=== PATIENT | male | born 1970 | race Caucasian/White ===

== ENCOUNTER → 2019-07-12 16:29 | Outpatient (CLI) | payer OTHER, SELFPAY ==
--- NOTE | 2019-07-12 | XR_ITS ---
PROCEDURE: XR KNEE LT 3V CLINICAL INDICATION: Chronic knee pain COMPARISON: [id number] XR knee LT 3V from 03/30/2018 FINDINGS: No fracture or dislocation. No lytic or blastic change. There is normal mineralization. There are minimal osteoarthritic changes of the medial compartment which has developed since the previous exam. Other findings:None. IMPRESSION: Minimal osteoarthritic change medial compartment Dictated by: Paul Perales MD 07/12/2019 17:38 Electronically signed by Paul Perales MD in [place] 07/12/2019 17:38
== END ==
PROVIDERS: PCP Pediatrics; Visit Provider Pediatrics
DX: M25.562 Pain in left knee (principal)
CPT/HCPCS: 73562

== ENCOUNTER 2024-02-22 15:08 | Outpatient (CLI) | payer OTHER, SELFPAY ==
--- NOTE | 2024-02-22 15:09 | CT_ITS ---
FINAL REPORT TECHNIQUE: Axial CT images of the chest were obtained without contrast. Low-dose protocol was utilized. This study was performed with techniques to keep radiation doses as low as reasonably achievable (ALARA). Individualized dose reduction techniques using automated exposure control or adjustment of mA and/or kV according to the patient's size were employed. CLINICAL HISTORY: lung cancer screening smoker 35 years, 1ppd COMPARISON: None FINDINGS: CT CHEST WITHOUT, LOW DOSE SCREENING CT Di Vol: 2.90 mGy DLP: 106.55 mGy*cm There is no axillary, mediastinal, or hilar adenopathy. The heart size is normal. There is no pleural or pericardial effusion. The lung windows show a mildly irregular nodule in the right lung apex on image 20 measuring 10 x 7 mm. There are few other scattered 2 mm nodules in the upper lobes. Emphysema is noted. Limited images of the upper abdomen demonstrate no acute findings. IMPRESSION: Numerous tiny benign-appearing nodules with a more dominant right lung apex nodule measuring up to 10 mm. LR Category 4A: Recommend PET/CT. Then, if this exam is negative, short-term 3-month chest CT follow-up recommended. Reviewed, Interpreted and Dictated by Orquidea Banda MD Transcribed by Halima Bell Authenticated and [facility]
== END 2024-02-22 23:59 | disposition home or self-care (01) ==
LOC: RAD 15:09
PROVIDERS: PCP Internal Medicine; Visit Provider Internal Medicine
DX: F17.210 Nicotine dependence, cigarettes, uncomplicated (principal)
CPT/HCPCS: 71271

== ENCOUNTER 2024-02-23 06:20 | Outpatient (CLI) | payer OTHER, SELFPAY ==
--- NOTE | 2024-02-23 06:26 | NM_ITS ---
APPROVED REPORT Exam: Nuclear Stress Test Indication: Chest pain, SOB, High cholesterol, Tobacco use Patient Location: Outpatient Stress Tech: Courtney Soria NM Tech:Ayleen Albright, ARRT, RT (R)(N) Ht: 5 ft 9 in Wt: 143 lbs HR: 68 bpm BP: 146/79 mmHg BSA: 1.79 m2 TID: 1.06 BMI: 21.1 History: Chest pain, SOB, High cholesterol, Tobacco use Procedure: Patient exercised on Juan Pablo protocol 9:31 minutes and sec, resting heart rate 68 bpm, resting blood pressure 146/79 mmHg, with exercise maximum heart rate achived was 148 bpm which is 88 % of the maximum predicted heart rate and blood pressure was 184/79 mmHg. Test was stopped due to SOB. Patient denied any complaint of chest pain. Patient has exercise capacity, achieved 10.1 METs of workload on treadmill, the blood pressure response to exercise was . Cardiac Stress and Resting SPECT Images: Cardiac Stress and Resting SPECT images were obtained using technetium 99m Myoview 30.1 mCi stress and 10.79 mCi at rest. Resting and stress imaging in supine and prone positions demonstrate a large sized, moderate, partially reversible perfusion defect in the and inferior and inferoseptal LV lopez. Findings are suggestive of partial reversible ischemia. Gated imaging demonstrates mild reduction global LV systolic function. There is moderate hypokinesis of the basal to mid inferior LV wall. LVEF is calculated at 49%. Conclusion: Large sized, moderate, partially reversible perfusion defect in the and inferior and inferoseptal LV lopez. Findings are suggestive of partial reversible ischemia. Gated imaging demonstrates mild reduction global LV systolic function. There is moderate hypokinesis of the basal to mid inferior LV wall. LVEF is calculated at 49%. Electronically signed by : Adrianna Story MD 02/23/2024 12:31:36
--- NOTE | 2024-02-23 07:41 | CA_ITS ---
APPROVED REPORT EXAM: Comprehensive 2D, Doppler, and color-flow Echocardiogram Statistical Secretary: Lena Crespo RT(R) Ht: 5 ft 10 in Wt: 144lbs BSA: 1.82 BP: 105/81 mmHg Indications: CP, smoker, hyperlipidemia, SOB, history of CVA with known PFO diagnosed at [facility]. Echo ordered as a bubble study to reassess PFO. Echo Enhancing Agent Indication: Rule out Shunt Agent(s) / Amount(s) Used: Agitated Saline 15 cc 2D Dimensions Left Atrium 2.30 cm M: 3.0 - 4.0 LVEF (Stevens's) 53.80 % M: 52 - 72 LVOT 2.11 cm (M/F) 1.5-2.5 LV Volume 73.10 mL M: 62 - 150 LV Volume Index 40.2 mL/m2 M: 34 - 74 LA Volume 30.00 mL LA Volume Index 16.48 mL/m2 (M/F) 16-34 EF AP4 54.20 % EF AP2 61.4 % EF BP 53.8 % GL Strain -12.7 % M-Mode Dimensions RVDd 2.57 cm (0.9-2.6) LVDd 4.17 cm (3.5-5.7) Ao Diam 2.58 cm (2.0-3.7) LVDs 3.21 cm (3.5-5.7) IVSd 0.89 cm (0.6-1.1) PWd 0.57 cm (0.6-1.1) EF (Teich) 46.60% FS 23.00% EDV (Teich) 77.30 mL ESV (Teich) 41.30 mL LV Diastology E Decel Time 164 (160-240 msec) E/A Ratio 1.2 MED E' 9.1 (>= 7 cm/sec) E'/MED E' Ratio 6.88 (<= 14) LAT E' 11.1 (>= 10 cm/sec) E/LAT E' Ratio 5.64 (<= 14) Mitral Valve MV E Max Toribio. 63.0 (40-130 cm/s) MV A Velocity 54.0 (40-130 cm/s) E/A Ratio 1.16 MV Decel. Time 164 (160-240 ms) Left Ventricle The left ventricle is normal size. The left ventricular systolic function is normal. The left ventricular ejection fraction is within the normal range. There is normal left ventricular wall thickness. There is normal LV segmental wall motion. The left ventricular diastolic function is normal. LVEF is 55%. Right Ventricle The right ventricle is normal size. The right ventricular systolic function is normal. Atria The left atrium size is normal. The right atrium size is normal. Color Doppler demonstrates presence of left to right interatrial shunt. Agitated saline administration confirms presence of interatrial shunt. Aortic Valve The aortic valve opens well. There is no aortic valvular stenosis. No aortic regurgitation is present. Mitral Valve The mitral valve is normal in structure. No evidence of mitral valve stenosis. There is no mitral valve regurgitation noted. Tricuspid Valve The tricuspid valve leaflets are thin and pliable. Trace tricuspid regurgitation. There is insufficient TR jet to estimate RVSP. Pulmonic Valve The pulmonary valve is normal in structure. Trace pulmonic regurgitation. Great Vessels The aortic root is normal in size. The ascending aorta is not well-visualized. IVC is normal in size and collapses >50% with inspiration. Pericardium There is no pericardial effusion. Other Information Study Quality: Fair Conclusion Normal biventricular systolic size and function. No significant valvular stenosis or regurgitation. Color Doppler demonstrates presence of left to right interatrial shunt. Agitated saline administration confirms presence of interatrial shunt. Electronically signed by : Adrianna Story MD 02/23/2024 12:27:50
--- NOTE | 2024-02-23 08:31 | CA_ITS ---
FINAL REPORT CLINICAL HISTORY: CVA, Patent foramen ovale FINDINGS: RIGHT CAROTID: CCA PSV -78 cm/sec ICA PSV -84 cm/sec ICA/CCA PSV ratio -1.1. Comments: Moderate plaque disease is noted. LEFTCAROTID: CCA PSV -113. cm/sec ICA PSV -95. cm/sec ICA/CCA PSV ratio -1.2. Comments: Moderate plaque disease is noted. Antegrade flow is seen within the vertebral arteries. IMPRESSION: Carotid stenosis classified less than 50% Reviewed, Interpreted and Dictated by Orquidea Banda MD Transcribed by Susanne Plaza Authenticated and [facility]
--- NOTE | 2024-02-23 09:40 | CA_ITS ---
APPROVED REPORT Exam: Exercise Treadmill Technologist: Courtney Soria Ht: 5 ft 0 in Wt: 144 lbs BSA: 1.62 m2 HR: 57 bpm BP: 146/79 mmHg Rhythm: NSR Indications: Chest pain, Shortness of Breath, CVA Medical History Medications: CHOLESTEROL MED,,,,, Blood THINNER,,,,, Stress Test Details Test: Juan Pablo HR Resting HR: 68 bpm Max Heart Rate (APMHR): 168 bpm Max HR Achieved: 148 bpm Target HR (85% APMHR): 143 bpm % of APMHR: 88 Recovery HR: 87 bpm HR response to stress: Normal HR response to stress BP Resting BP: 146.0/79.0 mmHg Max BP: 184.0/79.0 mmHg Recovery BP: 148.0/85.0 mmHg BP response to stress: Normal blood pressure response to stress. ECG Resting ECG: Sinus bradycardia Stress EC.[address] depression Arrhythmia: PVCs Recovery ECG: Return to baseline within 3 minutes of recovery Recovery Arrhythmia: PVCs Clinical Exercise duration: 09:31 min Highest Stage Achieved: Exercise capacity: 10.1 METs Overall Exercise Capacity for Age: Average Stress ECG Conclusion The patient was able to exercise for a total of 10 minutes, 31 seconds. He achieved a total of 10.1 METS. He has average exercise capacity compared to age and sex matched peers. Symptoms: Dyspnea Arrhythmias/Ectopy: Frequent PVCs ST-T Changes: 0.[address] depression. Conclusion: Average exercise capacity. Normal EKG response to exercise. Myoview images are reported separately. Test Summary REST . . . . . . . Sitting REST 15:36 0.0 0.0 68 . 146/ 79 . . Stage 1 01:00 10.0 1.7 87 . . . . Stage 1 02:00 10.0 1.7 96 . . . . Stage 1 03:00 10.0 1.7 97 . 150/ 82 . . Stage 2 01:00 12.0 2.5 103 . . . . Stage 2 02:00 12.0 2.5 109 . 160/ 84 . . Stage 2 03:00 12.0 2.5 112 . 160/ 84 . . Stage 3 01:00 14.0 3.4 121 . . . . Stage 3 02:00 14.0 3.4 140 . 164/ 88 . . Stage 3 . . . . . . . Myoview Injected Stage 3 03:00 14.0 3.4 138 . 164/ 88 . . Stage 4 00:31 16.0 4.2 141 . . . Stop exercise at 09:31 RECOVERY 01:00 0.0 0.0 121 . 176/ 86 . . RECOVERY 02:00 0.0 0.0 108 . 176/ 86 . . RECOVERY 03:00 0.0 0.0 90 . 184/ 79 . . RECOVERY 04:00 0.0 0.0 88 . 184/ 79 . . RECOVERY 05:00 0.0 0.0 88 . 156/ 87 . . RECOVERY 05:45 0.0 0.0 88 . 148/ 85 . . Electronically signed by : Adrianna Story MD 02/23/2024 12:29:36
[2024-02-23] MEDS: ISOTOPE MYOVIEW (PER STUDY) 1 DOSE IV (10:12)
[2024-02-23] MEDS: SODIUM CHLORIDE 0.9% 10ML SYR (RAD ONLY) 10 ML IV ×2 (10:12→10:13)
== END 2024-02-23 23:59 | disposition home or self-care (01) ==
LOC: RAD 06:21
PROVIDERS: PCP Internal Medicine; Visit Provider Nurse Practitioner Family
DX: I20.89 Other forms of angina pectoris (principal); R06.00 Dyspnea, unspecified; Q21.12 Patent foramen ovale; R53.1 Weakness; Z86.73 Personal history of transient ischemic attack (TIA), and cerebral infarction without residual deficits; F17.210 Nicotine dependence, cigarettes, uncomplicated
CPT/HCPCS: 78452; 93017; 93018; 93306; 93880; A9502

== ENCOUNTER 2024-03-22 08:25 | Day surgery (SDC) | payer OTHER, SELFPAY ==
[2024-03-22] VITALS (10 sets, daily range): BP systolic 107–148; BP diastolic 64–89; PULSE 52–73; RESP 17–22; TEMP 36.7–36.8; O2SAT 94–97; BMI 20.5
--- NOTE | 2024-03-22 07:04 | IR_ITS ---
APPROVED REPORT Patient Location: Outpatient Scrubbing Machine Operator: RIANA Diaz RT (R) PROCEDURES Left heart catheterization Left ventriculogram Selective coronary angiogram INDICATION Angina pectoris, Abnormal Myoview Informed consent was obtained prior to the procedure. COMPLICATIONS None Estimated Blood Loss: Less than 10 mls TECHNIQUE One percent lidocaine used to anesthetize the right anterior aspect of the wrist. The right radial artery was accessed via the Seldinger technique. A 6 Maldivian sheath was placed in the right radial artery. 2.5 mg of Verapamil, 800 mcg of nitroglycerin, 1mg Lidocaine and 5000 U Heparin were given through the arterial sheath. The papa catheter was also used to perform left heart catheterization, left ventriculogram and selective coronary angiogram. At the end of the procedure the sheath was removed good hemostasis was achieved using Traclet band, patient was transferred to the postop holding area in stable condition. ANGIOGRAPHIC RESULTS The left main artery Normal The left anterior descending artery Normal The circumflex artery Normal The right coronary artery Dominant and normal The ORTIZ ventriculogram reveals Normal 65% The left ventricular end-diastolic pressure 25 mmHg IMPRESSION Normal coronary arteries Normal ejection fraction Elevated LVEDP PLAN 1. Medical management for diastolic dysfunction Electronically signed by : Jose Underwood MD 03/22/2024 15:01:04
[2024-03-22 08:56] LABS: Basophils # 0.1 K/mm3 (0-0.2); Basophils % 0.7 % (0.1-2.0); Eosinophils # 0.5 K/mm3 (0.0-0.4); Eosinophils % 5.3 % (0.1-12.0); Hematocrit 49.8 % (42.0-52.0); Hemoglobin 16.1 g/dL (14.1-18.0); Lymphocytes # 2.1 K/mm3 (0.7-4.5); Mean Corpuscular HGB Conc 32.4 g/dL (31.8-35.4); Mean Corpuscular Hemoglobin 30.6 pg (27.0-31.2); Mean Corpuscular Volume 94.4 fl (80-94); Mean Platelet Volume 8.5 fl (7.4-10.4); Monocytes # 0.8 K/mm3 (0.1-1.0); Monocytes % 8.2 % (1.7-9.3); Neutrophils # 5.8 K/mm3 (1.8-7.8); Neutrophils % 62.7 % (37.0-80.0); Platelet Count 249 K/mm3 (142-424); Red Blood Count 5.27 M/mm3 (4.60-6.20); Red Cell Distribution Width 14.1 % (11.5-17.5); White Blood Count 9.3 K/mm3 (4.8-10.8)
[2024-03-22 09:05] LABS: Chloride 108 mmol/L (98-107); Sodium 139 mmol/L (136-145)
[2024-03-22 09:06] LABS: Potassium 4.5 mmoL/L (3.5-5.1)
[2024-03-22 09:08] LABS: Blood Urea Nitrogen 14 mg/dl (9-20); Creatinine Clearance Estimated 79 mL/min (50-200); Estimated Glomerular Filt Rate 78 ml/min (>60); GFR (African American) 95 ML/MIN (>60)
[2024-03-22 09:09] LABS: Anion Gap 9.5 mEq/L (5-15); Calcium 8.6 mg/dl (8.4-10.2); Carbon Dioxide 26 mmol/L (22.0-30.0); Glucose 111 mg/dl (74-100)
[2024-03-22] MEDS: VERAPAMIL 2.5MG/ML 2ML VIAL 2.5 MG IV (13:26)
[2024-03-22] MEDS: HEPARIN 1,000 UNITS/ML 10ML VIAL (CATH LAB) 10000 UNIT IV (13:27)
[2024-03-22] MEDS: LIDOCAINE 1% 10ML MDV 20 ML IJ (13:27)
[2024-03-22] MEDS: HEPARIN 1,000 UNITS/500ML NS (CATH LAB) 3000 UNIT IV (13:28)
[2024-03-22] MEDS: diphenhydrAMINE 50MG/ML VIAL 50 MG IV (13:28)
[2024-03-22] MEDS: 0.9 % SODIUM CHLORIDE 500 ML 25 ML IV (13:29)
[2024-03-22] MEDS: FENTANYL 100MCG/2ML VIAL 50 MCG IV (14:04)
[2024-03-22] MEDS: MIDAZOLAM HCL 1MG/1ML 5ML VIAL 1 MG IV (14:04)
[2024-03-22] MEDS: IOPAMIDOL-370 (76%);100ML BOTTLE 50 ML IV (15:58)
== END 2024-03-22 15:51 | disposition home or self-care (01) ==
PROVIDERS: PCP Internal Medicine; Visit Provider Internal Medicine
DX: I20.89 Other forms of angina pectoris (principal); R94.39 Abnormal result of other cardiovascular function study; Z79.899 Other long term (current) drug therapy; F17.210 Nicotine dependence, cigarettes, uncomplicated; R06.02 Shortness of breath; I69.354 Hemiplegia and hemiparesis following cerebral infarction affecting left non-dominant side
CPT/HCPCS: 80048; 85025; 93458; 99152; C1725; C1769; J1200; J1644; J2250; J3010; Q9967

== ENCOUNTER 2024-10-31 11:50 | Outpatient (CLI) | payer OTHER, SELFPAY ==
--- NOTE | 2024-10-31 11:54 | XR_ITS ---
FINAL REPORT CLINICAL HISTORY: right elbow cyst pain marker on 2nd lateral on knot FINDINGS: 4 views were obtained. No acute fracture or malalignment is identified. There is no joint effusion. Soft tissues are unremarkable. IMPRESSION: No acute process. Reviewed, Interpreted and Dictated by Orquidea Banda MD Transcribed by VARSHA Pearson Authenticated and [facility]
== END 2024-10-31 23:59 | disposition home or self-care (01) ==
LOC: RAD 11:51
PROVIDERS: PCP Physician Assistant; Visit Provider Physician Assistant
DX: M25.521 Pain in right elbow (principal)
CPT/HCPCS: 73080

== ENCOUNTER 2024-11-29 11:19 | Outpatient (CLI) | payer OTHER, SELFPAY ==
[2024-11-29 11:42] VITALS: BMI 22.2
--- NOTE | 2024-11-29 11:57 | ECG_ITS ---
APPROVED REPORT Exam: Resting ECG HR:65 bpm ECG Measurements Heart Rate 65 AXES AZ 148 P 81 QRSd 99 QRS 65 QT 378 T 58 QTc 390 Conclusion SINUS RHYTHM POSSIBLE LEFT ATRIAL ENLARGEMENT [-0.1mV P-WAVE IN V1/V2] POSSIBLE RIGHT VENTRICULAR CONDUCTION DELAY [RSR (QR) IN V1/V2] ST ELEVATION, PROBABLY EARLY REPOLARIZATION [ST ELEVATION WITH NORMALLY INFLECTED T-WAVE] BORDERLINE ECG UNCONFIRMED REPORT Electronically signed by : Adam Huertas MD 11/30/2024 07:53:12
[2024-11-29 12:13] LABS: Basophils # 0.1 K/mm3 (0-0.2); Basophils % 0.8 % (0.1-2.0); Eosinophils # 0.4 Kmm3 (0.0-0.4); Eosinophils % 5.5 % (0.1-12.0); Hematocrit 43.9 % (42.0-52.0); Hemoglobin 15.1 g/dL (14.1-18.0); Lymphocytes # 2.3 K/mm3 (0.7-4.5); Lymphocytes % 31.7 % (10-50); Mean Corpuscular HGB Conc 34.4 g/dL (31.8-35.4); Mean Corpuscular Volume 87.1 fl (80-94); Mean Platelet Volume 10.6 fl (7.4-10.4); Monocytes # 0.9 K/mm3 (0.1-1.0); Neutrophils # 3.6 K/mm3 (1.8-7.8); Neutrophils % 49.7 % (37.0-80.0); Nucleated Red Blood Cells # 0 10^3/uL; Nucleated Red Blood Cells % 0 %; Platelet Count 253 K/mm3 (142-424); Red Blood Count 5.04 M/mm3 (4.60-6.20); Red Cell Distribution Width 13.2 % (11.5-17.5); Red Cell Distribution Width-SD 42.2 fL; White Blood Count 7.2 K/mm3 (4.8-10.8)
[2024-11-29 12:28] LABS: Anion Gap 7.1 mEq/L (5-15); Blood Urea Nitrogen 8 mg/dl (9-20); Calcium 8.7 mg/dl (8.4-10.2); Carbon Dioxide 24 mmol/L (22.0-30.0); Chloride 109 mmol/L (98-107); Creatinine Clearance Estimated 106 mL/min (50-200); Estimated Glomerular Filt Rate 101 ml/min (>60); GFR (African American) 122 ML/MIN (>60); Glucose 92 mg/dl (74-100); Potassium 4.1 mmoL/L (3.5-5.1); Sodium 136 mmol/L (136-145)
== END 2024-11-29 23:59 | disposition home or self-care (01) ==
PROVIDERS: PCP Physician Assistant; Visit Provider Orthopaedic Surgery
DX: Z01.810 Encounter for preprocedural cardiovascular examination (principal); Z01.812 Encounter for preprocedural laboratory examination; R94.31 Abnormal electrocardiogram [ECG] [EKG]
CPT/HCPCS: 80048; 85025; 93005

== ENCOUNTER 2024-12-07 07:46 | Day surgery (SDC) | payer OTHER, SELFPAY ==
[2024-11-29 13:48] VITALS: BMI 22.2
[2024-12-07] VITALS (10 sets, daily range): BP systolic 104–121; BP diastolic 56–74; PULSE 64–84; RESP 14–17; TEMP 36.3–36.6; O2SAT 94–99
[2024-12-07] MEDS: LACTATED RINGERS 1000ML 1,000 ML 100 ML IV (08:21)
--- NOTE | 2024-12-07 08:55 | P.PNANES_ITS ---
[facility] Disclaimer: The information contained in this section may have been updated after the patient was seen, as this information can be updated by other users. Medical History Impacted cerumen of both ears Bilateral tinnitus Lung nodule Pulmonary emphysema Smoking greater than 30 pack years Abnormal cardiovascular stress test Angina pectoris Hyperlipidemia Patent foramen ovale CVA (cerebral vascular accident) Tobacco use disorder COPD (chronic obstructive pulmonary disease) SOB (shortness of breath) on exertion Chest pain Dyspnea Atypical angina TIA (transient ischemic attack) Surgical History History of cardiac catheterization History of lung surgery Family History Other Diabetes Social History Smoking Status: Current every day smoker tobacco type: cigarettes packs per day: 1 alcohol intake: never substance use type: marijuana current occupational status: employed Travel in the last 8 weeks?: Inside the [place] Have you lived/traveled outside US in past 30 days?: No Contact w/someone who lives/traveled outside US past 30 days?: No Exposure to someone with infectious disease in past 14 days?: No Do you have a fever (greater than 100.4 F or 38 C)?: No Have you tested positive for COVID-19?: No Exposed to someone with COVID-19 in past 14 days?: No Do you have a sore throat?: No Do you have a cough?: No Do you have any weakness?: No Do you have any diarrhea?: No Are you experiencing any unusual bleeding?: No Do you have any muscle aches/pain?: No Do you have any abdominal pain?: No Are you experiencing loss of taste or smell?: No [facility] Anesthesia Checklist Patient Identification Patient Identification: Arm Band Structural Data Admitted From: Home Planned Operative Procedure/s: Right Elbow Soft Tissue Mass Consent for Planned Operative Procedure(s) Verified: Yes Verified Documents: Surgical Consent and History and Physical NPO Status Verified Time NPO: 00:00 Additional verifications Anesthesia Reactions: No Hx Blood Transfusions: No Blood Transfusion Reaction: No Airway Assessment Mallampati Score:: Class II C-Spine Mobility Assessed: Yes TMJ Mobility Assessed: Yes Dentition: Good Dentition Neurological Assessment Level of Consciousness: Awake, Alert and Appropriate Anesthesia Plan Anesthesia Risk discussed: Yes Anesthesia Plan: Verified ASA Class: III Anesthesia Type: General
[2024-12-07] MEDS: LIDOCAINE 1% W/EPI 1:100,000 20ML VIAL 20 ML (09:33)
[2024-12-07] MEDS: CEFAZOLIN SODIUM 2 GM in 0.9 % SODIUM CHLORIDE 100 ML IV (09:34)
--- NOTE | 2024-12-07 10:13 | P.PNANES_ITS ---
[facility] Anesthesia Record Part I Anesthesia Record I Intake, IV Amount: 600 Hydration: Adequate Estimated blood loss (mL): 0 Urine output (mL): 0 Blood Products used (#): none Blood Pressure: 114/56 SaO2: 96 Pulse Rate: 67 Airway Patency: Patent Respiratory Rate: 14 Temperature: 97.4 F Patient is:: Oral/Nasal airway, Stable and Somnolent Stable to PACU at:: 10:07
--- NOTE | 2024-12-07 10:24 | EXP.OP.NOTE ---
Date of procedure: 12/07/24 Pre-op Diagnosis:: Soft tissue mass right elbow 3 cm x 2 cm Post-op Diagnosis:: Same Procedure performed:: Excision soft tissue mass 3 cm x 2 cm right elbow Surgeon:: Horace Villa DO F[employer]ation Plant Supervisor(s):: Bradley SELBY Anesthesia: GETA Estimated blood loss (mL): 0 Operative findings:: Well-circumscribed cystic lesion right elbow with adjacent olecranon bursitis Operative note:: Patient was identified preoperatively. Right elbow marked with yes my initials. Transported operative suite placed upon the operating bed with a hand table. Right upper extremity prepped and draped normal sterile fashion. Once prepped and draped final operative timeout performed to identify proper patient procedure and extremity. Everyone involved the case agreed. There is no counter indications beginning. Did receive preoperative antibiotics. Marking pen was used to villa plan incision around the soft tissue mass of the elbow Esmarch was used to exsanguinate extremity pneumatic tourniquet inflated to 250 mmHg. Skin knife was used incise the skin careful dissection is taken down with the scissors to identify soft tissue mass which was a well-rounded circumscribed cystic lesion it was excised and passed off for pathology there was adjacent olecranon bursitis present bursectomy was completed as well to remove the inflamed bursa Specimen was passed off for pathology Irrigation wound performed. Incision closed with 4-0 Monocryl and Steri-Strips local anesthesia infiltrated around the incision sterile dressing placed patient waken from anesthesia taken recovery in stable condition. Condition: stable Disposition: PACU Complications:: None apparent
--- NOTE | 2024-12-07 15:08 | EXP.ANES.II ---
[facility] Anesthesia Record Part II Anesthesia Record Part II Discharge Time: 10:37 Destination: Surgical Day Care (OP Surgery) PACU nurse assessment reviewed?: Yes Patient Condition:: Good Anesthesia Complications:: None Swallowing reflex intact?: Yes Airway Patency: Patent Cyanosis?: No Blood Pressure: 118/61 SaO2: 99 Respiratory Rate: 17 Pulse Rate: 75 Temperature: 97.4 F Mental Status: Alert & Oriented Pain level:: 0 Nausea and/or vomitting:: None Intake, IV Amount: 0 Hydration: Adequate
== END 2024-12-07 11:07 | disposition home or self-care (01) ==
PROVIDERS: PCP Physician Assistant; Visit Provider Orthopaedic Surgery
PROC: (CPT 24071; principal; 2024-12-07 09:15)
DX: R22.31 Localized swelling, mass and lump, right upper limb (principal)
CPT/HCPCS: 24071; J0690; J1100; J1885; J2250; J2405; J3010; J7120